=== PATIENT | male | born 1965 | race Two or more races ===

== ENCOUNTER 2021-09-25 05:32 | Emergency (ER) | payer MEDICAID ==
[~2021-09-25] VITALS: Ht 167.6 cm; Wt 122.7 kg
[2021-09-25] MEDS ORDERED: INSLAN SQ ×2 (05:37→07:06)
[2021-09-25 05:57] LABS: BASOPHILS % (AUTO) 0.6 % (0.0-2.0); EOSINOPHILS % (AUTO) 1.2 % (1.0-6.0); HEMATOCRIT 42.3 % (41-53); HEMOGLOBIN 14.7 g/dL (13.5-17.5); LYMPHOCYTES # (AUTO) 3.2 K/uL (1.0-4.8); LYMPHOCYTES % (AUTO) 35.9 % (22.0-44.0); MEAN CORPUSCULAR HEMOGLOBIN 29.9 pg (26.0-34.0); MEAN CORPUSCULAR HGB CONC 34.9 G/dL (31.0-37.0); MEAN CORPUSCULAR VOLUME 86 fL (80-100); MONOCYTES # (AUTO) 0.9 K/uL (0.1-1.0); MONOCYTES % (AUTO) 9.8 % (2.0-9.0); NEUTROPHILS # (AUTO) 4.7 K/uL (1.8-7.7); NEUTROPHILS % (AUTO) 52.5 % (40.0-70.0); PLATELET COUNT (AUTO) 194 K/uL (150-450); RED BLOOD CELL COUNT(AUTO) 4.94 MIL/uL (4.50-5.90); RED CELL DISTRIBUTION WIDTH 13.2 % (11.5-14.5)
[2021-09-25] MEDS ORDERED: SODIUM CHLORIDE 0.9% 1,000 ML IV ONE ×2 (06:00→06:30)
[2021-09-25 06:06] LABS: ANION GAP 10 mmol/L (8-16); CALCIUM, TOTAL 8.5 mg/dL (8.8-10.5); CARBON DIOXIDE 26 mmol/L (22-29); CHLORIDE 100 mmol/L (98-107); GLOMERULAR FILTR. RATE CALC > 60 mL/min (>60); GLUCOSE,RANDOM 321 mg/dL (70-110); POTASSIUM 3.5 mmol/L (3.5-5.1); SODIUM SERUM 136 mmol/L (136-145); UREA NITROGEN, BLOOD 14 mg/dL (7-18)
[2021-09-25 06:12] LABS: ALANINE AMINOTRANSFERASE 37 U/L (12-78); ALBUMIN 3.4 g/dL (3.4-5.0); ALKALINE PHOSPHATASE 99 U/L (46-116); ASPARTATE AMINOTRANSFERASE 20 U/L (15-37); BILIRUBIN,TOTAL 0.5 mg/dL (0.1-1.0); TOTAL PROTEIN, SERUM 7.5 g/dL (6.4-8.2)
[2021-09-25 06:28] LABS: ACETONE,BLOOD NEGATIVE (NEGATIVE)
[2021-09-25] MEDS ORDERED: INSU100V SQ (07:05)
[2021-09-25 07:08] VITALS: BP 137/80
[2021-09-25] MEDS ORDERED: CLOT15CR29 TP (07:08)
[2021-09-25 07:13] LABS: APPEARANCE,URINE CLEAR (CLEAR); BILIRUBIN,URINE NEGATIVE (NEGATIVE); GLUCOSE, URINE (UA) >=1000 mg/dL (NEGATIVE); LEUKOCYTE ESTERASE ,URINE LARGE (NEGATIVE); NITRATE,URINE NEGATIVE (NEGATIVE); OCCULT BLOOD,URINE TRACE (NEGATIVE); PH,URINE 5.5 (5.0-8.0); PROTEIN,URINE TRACE mg/dL (NEGATIVE); SPECIFIC GRAVITIY, URINE 1.043 (1.003-1.030); UROBILINOGEN,URINE <=1.0 mg/dL (<=1.0)
[2021-09-25 07:23] LABS: WBC,URINE 51-100 /HPF (0-5)
[2021-09-25 07:24] LABS: BACTERIA,URINE Many /HPF (None Seen)
[2021-09-25] MEDS ORDERED: CefTRIAXone 1 GM/DEXTROSE 50 ML IV ONE (07:45)
[2021-09-25] MEDS ORDERED: CEFD300C3 PO (07:50)
[2021-09-25 08:15] LABS: GLUCOSE,POINT OF CARE 285 MG/DL (70-110)
== END 2021-09-25 08:24 | disposition home or self-care (01) ==
LOC: EMS 05:36
DX: E11.65 Type 2 diabetes mellitus with hyperglycemia (principal); N39.0 Urinary tract infection, site not specified; N47.1 Phimosis; N48.1 Balanitis; F17.210 Nicotine dependence, cigarettes, uncomplicated; Z79.4 Long term (current) use of insulin
CPT/HCPCS: 36415; 71045; 80053; 81001; 82009; 82962; 84484; 85025; 87086; 93005; 96361; 96365; 99285; G0480; J0696

== ENCOUNTER 2022-02-20 22:59 | Inpatient (IN) | payer SELFPAY ==
[~2022-02-20] VITALS: Ht 167.6 cm; Wt 113.5 kg
[~2022-02-20 22:59] MED LIST: CEFD300C18 PO; CLOT15CR29 TP; INSLAN SQ; INSU100V SQ
[2022-02-20 23:49] LABS: BASOPHILS % (AUTO) 0.7 % (0.0-2.0); EOSINOPHILS % (AUTO) 0 % (1.0-6.0); HEMATOCRIT 40.1 % (41-53); HEMOGLOBIN 13.9 g/dL (13.5-17.5); LYMPHOCYTES # (AUTO) 3.1 K/uL (1.0-4.8); LYMPHOCYTES % (AUTO) 18.2 % (22.0-44.0); MEAN CORPUSCULAR HEMOGLOBIN 29.7 pg (26.0-34.0); MEAN CORPUSCULAR HGB CONC 34.7 G/dL (31.0-37.0); MEAN CORPUSCULAR VOLUME 85 fL (80-100); MONOCYTES # (AUTO) 1.7 K/uL (0.1-1.0); MONOCYTES % (AUTO) 9.8 % (2.0-9.0); NEUTROPHILS # (AUTO) 12.2 K/uL (1.8-7.7); NEUTROPHILS % (AUTO) 71.3 % (40.0-70.0); PLATELET COUNT (AUTO) 231 K/uL (150-450); RED CELL DISTRIBUTION WIDTH 12.7 % (11.5-14.5)
[2022-02-20 23:58] LABS: ANION GAP 13 mmol/L (8-16); CARBON DIOXIDE 24 mmol/L (22-29); CHLORIDE 96 mmol/L (98-107); CREATININE 1.07 mg/dL (0.60-1.30); GLUCOSE,RANDOM 183 mg/dL (70-110); POTASSIUM 3.4 mmol/L (3.5-5.1); SODIUM SERUM 133 mmol/L (136-145); UREA NITROGEN, BLOOD 8 mg/dL (7-18)
[2022-02-21 00:03] LABS: ALANINE AMINOTRANSFERASE 24 U/L (12-78); ALBUMIN 3.2 g/dL (3.4-5.0); ALKALINE PHOSPHATASE 100 U/L (46-116); ASPARTATE AMINOTRANSFERASE 12 U/L (15-37); BILIRUBIN,TOTAL 1.2 mg/dL (0.1-1.0); LIPASE 35 U/L (73-393); TOTAL PROTEIN, SERUM 7.8 g/dL (6.4-8.2)
[2022-02-21 00:06] LABS: GLOMERULAR FILTR. RATE CALC > 60 mL/min (>60)
[2022-02-21] MEDS ORDERED: DIPHENOXYLATE/ATROP 2.5-0.025 MG TABLET PO ONE (01:00)
[2022-02-21] MEDS ORDERED: SODIUM CHLORIDE 0.9% 2,000 ML IV ONE ×2 (01:00→02:30)
[2022-02-21] MEDS ORDERED: ONDANSETRON HCL 4 MG/2 ML VIAL IVP ONE (01:00)
[2022-02-21] MEDS ORDERED: ACETAMINOPHEN 500 MG TABLET PO ONE (01:00)
[2022-02-21] MEDS ORDERED: HYDROmorphone 2 MG/ML VIAL IVP ONE (01:00)
[2022-02-21 01:47] LABS: APPEARANCE,URINE HAZY (CLEAR); BILIRUBIN,URINE NEGATIVE (NEGATIVE); GLUCOSE, URINE (UA) 70-100 mg/dL (NEGATIVE); LEUKOCYTE ESTERASE ,URINE MODERATE (NEGATIVE); NITRATE,URINE NEGATIVE (NEGATIVE); OCCULT BLOOD,URINE NEGATIVE (NEGATIVE); PROTEIN,URINE 100-200,SEE CONFIRM mg/dL (NEGATIVE); UROBILINOGEN,URINE <=1.0 mg/dL (<=1.0)
[2022-02-21 01:55] LABS: BACTERIA,URINE Rare /HPF (None Seen); RBC,URINE None Seen /HPF (0-2); SULFOSALICYLIC ACID,URINE Trace (Negative)
[2022-02-21] MEDS ORDERED: CefTRIAXone 1 GM/DEXTROSE 50 ML IV ONE (02:30)
[2022-02-21] MEDS ORDERED: SODIUM CHLORIDE 0.9% 1,000 ML IV ONE ×2 (02:30→06:30)
[2022-02-21] MEDS ORDERED: ACETAMINOPHEN 325 MG TABLET PO PRN (02:30)
[2022-02-21] MEDS ORDERED: ONDANSETRON HCL 4 MG/2 ML VIAL IVP PRN ×2 (02:30→06:30)
[2022-02-21] MEDS ORDERED: AZITHROMYCIN 500 MG/NS 250 ML IV ONE (02:30)
[2022-02-21 03:05] LABS: COVID AG,FIA SOURCE NASAL SWAB
[2022-02-21 03:25] LABS: INFLUENZA TYPE A NEGATIVE FOR TYPE A (NEGATIVE); INFLUENZA TYPE B NEGATIVE FOR TYPE B (NEGATIVE)
[2022-02-21 03:31] LABS: GLUCOMETER DEV NAME(LOC) ERT.5; GLUCOSE,POINT OF CARE 191 MG/DL (70-110)
[2022-02-21] MEDS ORDERED: METOCLOPRAMIDE HCL 5 MG/ML 2 ML VIAL IVP ONE (04:00)
[2022-02-21] MEDS ORDERED: MAGNESIUM HYDROXIDE SUSPENSION 30 ML UDCUP PO PRN (06:30)
[2022-02-21] MEDS ORDERED: MORPHINE SULFATE 2 MG/ML SYRINGE IVP PRN (06:30)
[2022-02-21] MEDS ORDERED: BISACODYL 10 MG RECTAL RECTAL SUPPOSITORY PR PRN (06:30)
[2022-02-21] MEDS ORDERED: *CLINICAL-LEVOFLOXACIN IVPB DOSING CLINICAL ONE (06:30)
[2022-02-21] MEDS: LEVOFLOXACIN 750 MG/D5% WATER 150 ML IV SCH (06:54)
[2022-02-21] MEDS: DOCUSATE SODIUM 100 MG CAPSULE PO SCH ×2 (08:30→20:49)
[2022-02-21] MEDS: HEPARIN SODIUM,PORCINE 5,000 UNITS/ML VIAL SQ SCH ×2 (08:30→17:12)
[2022-02-21] MEDS: HYDROCODONE/ACETAMINOPHEN 5-325 MG TABLET PO PRN ×2 (08:31→18:47)
[2022-02-21] MEDS: PANTOPRAZOLE SODIUM 40 MG DR TABLET PO SCH (08:34)
[2022-02-21 10:59] VITALS: BP 141/68
[2022-02-21] MEDS ORDERED: PNEUMOCOCCAL VACCINE POLYVALENT 0.5 ML VIAL [PPSV23] IM. ONE (12:15)
[2022-02-21] MEDS ORDERED: DEXTROSE 50%-WATER 25 GM/50 ML SYRINGE IVP PRN (12:45)
[2022-02-21] MEDS: INSULIN LISPRO 100 UNITS/ML SQ PRN ×3 (13:07→20:51)
[2022-02-21] MEDS: ACETAMINOPHEN 325 MG TABLET PO PRN ×2 (14:53→20:53)
[2022-02-21 15:43] VITALS: BP 119/66
[2022-02-21 18:16] LABS: GLUCOMETER DEV NAME(LOC) 5S.1B; GLUCOSE,POINT OF CARE 146 MG/DL (70-110)
[2022-02-21 20:26] VITALS: BP 127/67
[2022-02-21] MEDS ORDERED: POTASSIUM CHLORIDE 20 MEQ ER TABLET PO PRN (20:30)
[2022-02-21] MEDS ORDERED: POTASSIUM CHL 10 MEQ/WATER 50 ML IV PRN (20:30)
[2022-02-21] MEDS ORDERED: SODIUM CHLORIDE 0.9% 500 ML IV ONE (20:44)
[2022-02-22 00:06] VITALS: BP 133/66
[2022-02-22] MEDS: HEPARIN SODIUM,PORCINE 5,000 UNITS/ML VIAL SQ SCH ×3 (00:06→16:44)
[2022-02-22] MEDS: HYDROCODONE/ACETAMINOPHEN 5-325 MG TABLET PO PRN ×3 (02:58→18:48)
[2022-02-22] MEDS: ACETAMINOPHEN 325 MG TABLET PO PRN ×3 (03:43→20:05)
[2022-02-22 05:08] VITALS: BP 142/71
[2022-02-22] MEDS: INSULIN LISPRO 100 UNITS/ML SQ PRN ×4 (05:49→20:08)
[2022-02-22 06:31] LABS: BASOPHILS % (AUTO) 0.5 % (0.0-2.0); EOSINOPHILS % (AUTO) 0.1 % (1.0-6.0); HEMATOCRIT 34.8 % (41-53); HEMOGLOBIN 11.9 g/dL (13.5-17.5); LYMPHOCYTES # (AUTO) 1.2 K/uL (1.0-4.8); MEAN CORPUSCULAR HEMOGLOBIN 29.7 pg (26.0-34.0); MEAN CORPUSCULAR HGB CONC 34.3 G/dL (31.0-37.0); MEAN CORPUSCULAR VOLUME 86 fL (80-100); MONOCYTES # (AUTO) 1.1 K/uL (0.1-1.0); MONOCYTES % (AUTO) 9.8 % (2.0-9.0); NEUTROPHILS # (AUTO) 8.7 K/uL (1.8-7.7); NEUTROPHILS % (AUTO) 78.6 % (40.0-70.0); PLATELET COUNT (AUTO) 183 K/uL (150-450); RED BLOOD CELL COUNT(AUTO) 4.02 MIL/uL (4.50-5.90); RED CELL DISTRIBUTION WIDTH 12.7 % (11.5-14.5)
[2022-02-22 07:00] LABS: ALANINE AMINOTRANSFERASE 19 U/L (12-78); ALBUMIN 2.5 g/dL (3.4-5.0); ALKALINE PHOSPHATASE 85 U/L (46-116); ANION GAP 12 mmol/L (8-16); ASPARTATE AMINOTRANSFERASE 15 U/L (15-37); BILIRUBIN,TOTAL 0.5 mg/dL (0.1-1.0); CALCIUM, TOTAL 8.4 mg/dL (8.8-10.5); CARBON DIOXIDE 25 mmol/L (22-29); CHLORIDE 99 mmol/L (98-107); CREATININE 0.76 mg/dL (0.60-1.30); GLUCOSE,RANDOM 139 mg/dL (70-110); POTASSIUM 3.6 mmol/L (3.5-5.1); SODIUM SERUM 136 mmol/L (136-145); TOTAL PROTEIN, SERUM 6.6 g/dL (6.4-8.2); UREA NITROGEN, BLOOD 7 mg/dL (7-18)
[2022-02-22 07:03] LABS: GLOMERULAR FILTR. RATE CALC > 60 mL/min (>60)
[2022-02-22 07:25] VITALS: BP 138/80
[2022-02-22] MEDS: PANTOPRAZOLE SODIUM 40 MG DR TABLET PO SCH (09:07)
[2022-02-22] MEDS: DOCUSATE SODIUM 100 MG CAPSULE PO SCH ×2 (09:07→20:00)
[2022-02-22] MEDS: LEVOFLOXACIN 750 MG/D5% WATER 150 ML IV SCH (10:19)
[2022-02-22 11:05] VITALS: BP 123/78
[2022-02-22] MEDS ORDERED: CefTRIAXone SODIUM 2 GM in DEXTROSE 5%-WATER 50 ML IV SCH (14:00)
[2022-02-22] MEDS: CefTRIAXone SODIUM 2 GM in DEXTROSE 5%-WATER 50 ML IV SCH (14:48)
[2022-02-22 18:42] LABS: GLUCOMETER DEV NAME(LOC) 5S.1B; GLUCOSE,POINT OF CARE 158 MG/DL (70-110)
[2022-02-22 18:42] LABS: GLUCOMETER DEV NAME(LOC) 5S.1B; GLUCOSE,POINT OF CARE 147 MG/DL (70-110)
[2022-02-22 18:46] LABS: GLUCOMETER DEV NAME(LOC) 5N.1C; GLUCOSE,POINT OF CARE 206 MG/DL (70-110)
[2022-02-22 18:47] LABS: GLUCOMETER DEV NAME(LOC) 5N.1C; GLUCOSE,POINT OF CARE 176 MG/DL (70-110)
[2022-02-22 18:47] LABS: GLUCOMETER DEV NAME(LOC) 5N.1C; GLUCOSE,POINT OF CARE 201 MG/DL (70-110)
[2022-02-22 19:40] VITALS: BP 139/81
[2022-02-23 00:17] VITALS: BP 142/86
[2022-02-23] MEDS: CefTRIAXone SODIUM 2 GM in DEXTROSE 5%-WATER 50 ML IV SCH ×2 (00:59→14:21)
[2022-02-23] MEDS: HEPARIN SODIUM,PORCINE 5,000 UNITS/ML VIAL SQ SCH ×3 (00:59→16:00)
[2022-02-23] MEDS: HYDROCODONE/ACETAMINOPHEN 5-325 MG TABLET PO PRN ×5 (01:07→21:33)
[2022-02-23 02:40] LABS: GLUCOMETER DEV NAME(LOC) 5S.1B; GLUCOSE,POINT OF CARE 193 MG/DL (70-110)
[2022-02-23 04:27] VITALS: BP 138/88
[2022-02-23] MEDS: INSULIN LISPRO 100 UNITS/ML SQ PRN ×4 (05:57→23:15)
[2022-02-23 06:35] LABS: HEMATOCRIT 35.1 % (41-53); HEMOGLOBIN 12.3 g/dL (13.5-17.5); MEAN CORPUSCULAR HEMOGLOBIN 30.1 pg (26.0-34.0); MEAN CORPUSCULAR VOLUME 86 fL (80-100); PLATELET COUNT (AUTO) 198 K/uL (150-450); RED BLOOD CELL COUNT(AUTO) 4.07 MIL/uL (4.50-5.90); RED CELL DISTRIBUTION WIDTH 12.4 % (11.5-14.5)
[2022-02-23 07:13] LABS: ANION GAP 8 mmol/L (8-16); C-REACTIVE PROTEIN QUANT 22.34 mg/dL (0.00-0.30); CALCIUM, TOTAL 8.6 mg/dL (8.8-10.5); CARBON DIOXIDE 28 mmol/L (22-29); CHLORIDE 97 mmol/L (98-107); CREATININE 0.73 mg/dL (0.60-1.30); FERRITIN 999 ng/mL (26-388); GLUCOSE,RANDOM 157 mg/dL (70-110); POTASSIUM 3.7 mmol/L (3.5-5.1); SODIUM SERUM 133 mmol/L (136-145); UREA NITROGEN, BLOOD 11 mg/dL (7-18)
[2022-02-23 07:14] LABS: GLOMERULAR FILTR. RATE CALC > 60 mL/min (>60)
[2022-02-23 07:38] LABS: BAND NEUTROPHILS % (MANUAL) 22 % (0-5); LYMPHOCYTES % (MANUAL) 26 % (22-44); MONOCYTES % (MANUAL) 4 % (2-9); SEGMENTED NEUTROPHILS % 48 % (40-70)
[2022-02-23 08:15] VITALS: BP 135/81
[2022-02-23] MEDS: AZITHROMYCIN 500 MG TABLET PO SCH (08:23)
[2022-02-23] MEDS: PANTOPRAZOLE SODIUM 40 MG DR TABLET PO SCH (08:23)
[2022-02-23] MEDS: DOCUSATE SODIUM 100 MG CAPSULE PO SCH ×2 (08:23→20:13)
[2022-02-23] MEDS: ACETAMINOPHEN 325 MG TABLET PO PRN ×2 (08:29→17:36)
[2022-02-23 12:21] VITALS: BP 153/85
[2022-02-23 15:52] VITALS: BP 156/87
[2022-02-23 20:18] VITALS: BP 128/69
[2022-02-23] MEDS: ZOLPIDEM TARTRATE 5 MG TABLET PO PRN (21:33)
[2022-02-24 00:18] VITALS: BP 125/84
[2022-02-24] MEDS: HEPARIN SODIUM,PORCINE 5,000 UNITS/ML VIAL SQ SCH ×4 (00:46→23:07)
[2022-02-24 03:02] LABS: GLUCOMETER DEV NAME(LOC) 5S.1B; GLUCOSE,POINT OF CARE 195 MG/DL (70-110)
[2022-02-24 04:30] VITALS: BP 125/63
[2022-02-24] MEDS: HYDROCODONE/ACETAMINOPHEN 5-325 MG TABLET PO PRN ×3 (04:30→17:47)
[2022-02-24] MEDS: ACETAMINOPHEN 325 MG TABLET PO PRN ×2 (06:03→11:46)
[2022-02-24 06:38] LABS: BASOPHILS % (AUTO) 1.1 % (0.0-2.0); EOSINOPHILS % (AUTO) 1.1 % (1.0-6.0); HEMATOCRIT 37.2 % (41-53); HEMOGLOBIN 12.8 g/dL (13.5-17.5); LYMPHOCYTES # (AUTO) 1.5 K/uL (1.0-4.8); LYMPHOCYTES % (AUTO) 20.5 % (22.0-44.0); MEAN CORPUSCULAR HEMOGLOBIN 29.6 pg (26.0-34.0); MEAN CORPUSCULAR HGB CONC 34.4 G/dL (31.0-37.0); MEAN CORPUSCULAR VOLUME 86 fL (80-100); NEUTROPHILS # (AUTO) 4.6 K/uL (1.8-7.7); NEUTROPHILS % (AUTO) 63.3 % (40.0-70.0); PLATELET COUNT (AUTO) 236 K/uL (150-450); RED BLOOD CELL COUNT(AUTO) 4.33 MIL/uL (4.50-5.90); RED CELL DISTRIBUTION WIDTH 12.5 % (11.5-14.5)
[2022-02-24] MEDS: INSULIN LISPRO 100 UNITS/ML SQ PRN ×4 (07:00→20:45)
[2022-02-24 07:22] LABS: ANION GAP 7 mmol/L (8-16); C-REACTIVE PROTEIN QUANT 20.23 mg/dL (0.00-0.30); CALCIUM, TOTAL 8.7 mg/dL (8.8-10.5); CARBON DIOXIDE 30 mmol/L (22-29); CHLORIDE 95 mmol/L (98-107); CREATININE 0.81 mg/dL (0.60-1.30); FERRITIN 969 ng/mL (26-388); GLUCOSE,RANDOM 159 mg/dL (70-110); POTASSIUM 3.6 mmol/L (3.5-5.1); SODIUM SERUM 132 mmol/L (136-145); UREA NITROGEN, BLOOD 8 mg/dL (7-18)
[2022-02-24 07:28] LABS: GLOMERULAR FILTR. RATE CALC > 60 mL/min (>60)
[2022-02-24 08:19] VITALS: BP 141/90
[2022-02-24] MEDS: PANTOPRAZOLE SODIUM 40 MG DR TABLET PO SCH (08:44)
[2022-02-24] MEDS: AZITHROMYCIN 500 MG TABLET PO SCH (08:45)
[2022-02-24] MEDS: DOCUSATE SODIUM 100 MG CAPSULE PO SCH ×2 (08:46→20:29)
[2022-02-24 11:17] VITALS: BP 142/92
[2022-02-24] MEDS: CefTRIAXone SODIUM 2 GM in DEXTROSE 5%-WATER 50 ML IV SCH (13:48)
[2022-02-24 15:19] VITALS: BP 123/66
[2022-02-24 17:42] LABS: GLUCOMETER DEV NAME(LOC) 5S.1B; GLUCOSE,POINT OF CARE 194 MG/DL (70-110)
[2022-02-24 17:42] LABS: GLUCOMETER DEV NAME(LOC) 5S.1B; GLUCOSE,POINT OF CARE 163 MG/DL (70-110)
[2022-02-24 19:30] VITALS: BP 138/64
[2022-02-24] MEDS: ZOLPIDEM TARTRATE 5 MG TABLET PO PRN (20:30)
[2022-02-24] MEDS: SUMAtriptan SUCCINATE 6 MG/0.5 ML VIAL SQ PRN (20:31)
[2022-02-24 22:56] LABS: GLUCOMETER DEV NAME(LOC) 5S.2B; GLUCOSE,POINT OF CARE 246 MG/DL (70-110)
[2022-02-24 22:56] LABS: GLUCOMETER DEV NAME(LOC) 5S.2B; GLUCOSE,POINT OF CARE 265 MG/DL (70-110)
[2022-02-25 00:31] VITALS: BP 139/84
[2022-02-25 01:56] LABS: GLUCOMETER DEV NAME(LOC) 5N.1C; GLUCOSE,POINT OF CARE 172 MG/DL (70-110)
[2022-02-25 01:57] LABS: GLUCOMETER DEV NAME(LOC) 5N.1C; GLUCOSE,POINT OF CARE 149 MG/DL (70-110)
[2022-02-25 01:57] LABS: GLUCOMETER DEV NAME(LOC) 5N.1C; GLUCOSE,POINT OF CARE 194 MG/DL (70-110)
[2022-02-25] MEDS: HYDROCODONE/ACETAMINOPHEN 5-325 MG TABLET PO PRN (02:09)
[2022-02-25 04:40] VITALS: BP 138/71
[2022-02-25] MEDS: ACETAMINOPHEN 325 MG TABLET PO PRN (06:44)
[2022-02-25 07:13] VITALS: BP 123/74
[2022-02-25] MEDS: AZITHROMYCIN 500 MG TABLET PO SCH (08:14)
[2022-02-25] MEDS: DOCUSATE SODIUM 100 MG CAPSULE PO SCH (08:14)
[2022-02-25] MEDS: PANTOPRAZOLE SODIUM 40 MG DR TABLET PO SCH (08:14)
[2022-02-25] MEDS: HEPARIN SODIUM,PORCINE 5,000 UNITS/ML VIAL SQ SCH ×2 (08:14→15:00)
[2022-02-25] MEDS: SUMAtriptan SUCCINATE 6 MG/0.5 ML VIAL SQ PRN ×2 (08:15→17:35)
[2022-02-25] MEDS: INSULIN LISPRO 100 UNITS/ML SQ PRN (11:51)
[2022-02-25 12:12] VITALS: BP 140/79
[2022-02-25 14:57] VITALS: BP 153/86
[2022-02-25] MEDS: CefTRIAXone SODIUM 2 GM in DEXTROSE 5%-WATER 50 ML IV SCH (15:00)
[2022-02-25 17:17] LABS: GLUCOMETER DEV NAME(LOC) 5N.1C; GLUCOSE,POINT OF CARE 196 MG/DL (70-110)
[2022-02-25 17:17] LABS: GLUCOMETER DEV NAME(LOC) 5N.1C; GLUCOSE,POINT OF CARE 221 MG/DL (70-110)
[2022-02-25] MEDS ORDERED: AMOX1TAB16 PO (17:25)
[2022-02-25] MEDS ORDERED: SUMA25TA9 PO (17:26)
[2022-02-25] MEDS ORDERED: METF-1211 PO (17:27)
[2022-02-28 17:06] LABS: S PNEUMO SOURCE Urine; STREP PNEUMONIAE AG URINE Negative (Negative)
[2022-02-28 19:06] LABS: LEGIONELLA PNEUMO AG URINE Positive (Negative)
== END 2022-02-25 18:00 | disposition home or self-care (01) | DRG 871 ==
LOC: EMS 23:00 → 5S 02-21 10:14
PROVIDERS: ADMIT Internal Medicine; ATTEND Internal Medicine
DX: A41.9 Sepsis, unspecified organism (principal); J18.9 Pneumonia, unspecified organism; E87.1 Hypo-osmolality and hyponatremia; Z68.41 Body mass index [BMI] 40.0-44.9, adult; E87.6 Hypokalemia; E66.01 Morbid (severe) obesity due to excess calories; E11.65 Type 2 diabetes mellitus with hyperglycemia; E86.0 Dehydration; F17.210 Nicotine dependence, cigarettes, uncomplicated; K57.30 Diverticulosis of large intestine without perforation or abscess without bleeding; K76.0 Fatty (change of) liver, not elsewhere classified; K52.9 Noninfective gastroenteritis and colitis, unspecified; Z20.822 Contact with and (suspected) exposure to COVID-19; Z86.16 Personal history of COVID-19; Z79.899 Other long term (current) drug therapy
CPT/HCPCS: 70450; 71045; 74176; 80048; 80053; 81001; 81002; 82728; 82962; 83605; 83615; 83690; 84145; 84484; 85025; 86140; 87040; 87070; 87086; 87205; 87449; 87804; 87899; 93005; 99291; G0480; J0456; J0696; J1170; J1644; J1956; J2270; J2405; J2765; J3030; J7030; J7040; J7060; Q9967; 36415-L1; 36415-TC; U0003